=== PATIENT | male | born 1950 | race African-American/Black ===

== ENCOUNTER 2019-10-25 10:10 | Inpatient (IN) | payer BC ==
[~2019-10-25] VITALS: Ht 177.8 cm; Wt 97.5 kg
[2019-10-25] MEDS ORDERED: ASPIRIN 81 MG CHEW TAB PO ONE (10:45)
--- NOTE | 2019-10-25 11:47 | Diagnostic Imaging Report ---
EXAMINATION: CHEST SINGLE (PORTABLE) INDICATION: Shortness of breath COMPARISON: None FINDINGS: LINES/TUBES:EKG leads overlie the chest. LUNGS:The lungs are well-inflated. No focal consolidation or pulmonary edema. PLEURA:No pleural effusion or pneumothorax. MEDIASTINUM:The cardiomediastinal silhouette appears normal in size and shape. BONES/SOFT TISSUES:No acute osseous injury. ABDOMEN:No free air under the diaphragm. IMPRESSION: No focal pneumonia or pulmonary edema. Signed by: Renée Mac MD on 10/25/2019 11:43 AM
[2019-10-25 11:50] LABS: BASOPHILS % 0.3 % (0.0-1.0); EOSINOPHILS # (AUTO) 0.4 (0.0-0.4); EOSINOPHILS % 4.4 % (0.0-6.0); HEMATOCRIT 43.2 % (38.2-49.6); HEMOGLOBIN 14.8 g/dL (14.0-18.0); LYMPHOCYTES # (AUTO) 1.8 (1.0-3.2); LYMPHOCYTES % 23.2 % (18.0-39.1); MEAN CORPUSCULAR HEMOGLOBIN 33.6 pg (28-32); MEAN CORPUSCULAR HGB CONC 34.3 g/dL (31-35); MEAN CORPUSCULAR VOLUME 98.2 fL (81-99); MONOCYTES # (AUTO) 0.7 (0.2-0.8); MONOCYTES % 9.1 % (4.4-11.3); NEUTROPHILS % 62.6 % (38.7-80.0); PLATELET COUNT 217 x10e3/uL (140-360); RED CELL DISTRIBUTION WIDTH 11.6 % (11.7-14.4)
[2019-10-25 12:07] LABS: ALANINE AMINOTRANSFERASE 23 IU/L (0-55); ALBUMIN 3.7 g/dL (3.5-5.0); ALBUMIN/GLOBULIN RATIO 1.1 (0.8-2.0); ALKALINE PHOSPHATASE 86 IU/L (40-150); ANION GAP 15.9 mmol/L (8-16); BLOOD UREA NITROGEN 8 mg/dL (7-26); BUN/CREATININE RATIO 9 (6-25); CALCIUM 9.1 mg/dL (8.4-10.2); CARBON DIOXIDE 23 mmol/L (22-29); CHLORIDE 102 mmol/L (98-107); CREATINE KINASE 164 IU/L (30-200); CREATININE, SERUM 0.92 mg/dL (0.72-1.25); EST GLOMERULAR FILTRATION RATE > 60 ML/MIN (60-); GLUCOSE 95 mg/dL (74-118); POTASSIUM 3.9 mmol/L (3.5-5.1); SODIUM 137 mmol/L (136-145)
[2019-10-25 12:44] LABS: INR 0.91; PROTHROMBIN TIME 12.7 seconds (11.9-14.5)
[2019-10-25 12:45] LABS: PARTIAL THROMBOPLASTIN TIME 31.5 seconds (23.8-35.5)
--- NOTE | 2019-10-25 13:06 | NUR ---
VENOUS DOPPLER HERE
--- OUTSIDE RECORDS SUMMARY | 2019-10-25 15:00 | XMS REPORT ---
Author Author [facility] Address Unknown Phone Unavailable Care Team Providers Care Government Affairs Director Name Role Phone Samuel [place] Unavailable Unavailable Problems This patient has no known problems. Allergies, Adverse Reactions, Alerts This patient has no known allergies or adverse reactions. Medications This patient has no known medications. 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 LUNGS:The lungs are well-inflated. No focal consolidation or pulmonary edema. PLEURA:No pleural effusion or pneumothorax. MEDIASTINUM:The cardiomediastinal silhouette appears normal in size and shape. BONES/SOFT TISSUES:No acute osseous injury. ABDOMEN:No free air under the diaphragm. IMPRESSION: No focal pneumonia or pulmonary edema. Signed by: Leonid Zacarias MD on 10/25/2019 11:43 AM Dictated By: LEONID ZACARIAS MD 1143 Transcribed By: DOUGLAS on 10/25/19 1143 COPY TO: AKILAH NGUYEN NP
[2019-10-25] MEDS ORDERED: FUROSEMIDE INJ 10 MG/ML 4 ML VIAL IV SCH ×2 (16:00→21:00)
[2019-10-25] MEDS ORDERED: ACETAMINOPHEN 325 MG TAB PO PRN (16:15)
[2019-10-25] MEDS ORDERED: METOPROLOL TARTRATE INJ 1 MG/ML VIAL IV PRN (16:15)
[2019-10-25] MEDS ORDERED: TRAMADOL HCL 50 MG TAB PO PRN (16:15)
[2019-10-25] MEDS ORDERED: ONDANSETRON HCL INJ 2MG/ML 2ML 2 MG/ML VIAL IV PRN (16:15)
[2019-10-25 16:38] VITALS: BP 187/90
[2019-10-25 16:55] VITALS: BP 187/90
[2019-10-25] MEDS: FAMOTIDINE 20 MG TAB PO SCH (16:58)
--- NOTE | 2019-10-25 20:08 | NUR ---
Spoke to Dr. Giselle Allred, extension work director for Dr. Lidia Shea, will see patient.
[2019-10-25 20:44] LABS: CREATINE KINASE 148 IU/L (30-200)
[2019-10-25 20:45] VITALS: BP 137/79
[2019-10-25] MEDS: POTASSIUM CHLORIDE 20 MEQ TAB CR PO SCH (20:59)
[2019-10-25 21:00] VITALS: BP 137/79
--- NOTE | 2019-10-25 23:39 | NUR ---
Telemetry called, patient had 11 beats of VTAC, VS checked BP 107/54, HR 98, 02 Sat 100% on room air, patient is asymptomatic, no complaints of chest pain,not short of breath, spoke to Dr. Allred, no new order at this time, will continue to closely monitor patient
[2019-10-26] VITALS (9 sets, daily range): BP systolic 114–148; BP diastolic 64–84
[2019-10-26 04:18] LABS: BASOPHILS % 0.2 % (0.0-1.0); EOSINOPHILS # (AUTO) 0.2 (0.0-0.4); EOSINOPHILS % 2.4 % (0.0-6.0); HEMATOCRIT 43.5 % (38.2-49.6); HEMOGLOBIN 14.8 g/dL (14.0-18.0); LYMPHOCYTES # (AUTO) 1.8 (1.0-3.2); LYMPHOCYTES % 19.9 % (18.0-39.1); MEAN CORPUSCULAR HEMOGLOBIN 33.3 pg (28-32); MEAN CORPUSCULAR VOLUME 97.8 fL (81-99); MONOCYTES # (AUTO) 0.7 (0.2-0.8); NEUTROPHILS # (AUTO) 6.4 (2.1-6.9); NEUTROPHILS % 69.2 % (38.7-80.0); PLATELET COUNT 215 x10e3/uL (140-360); RED BLOOD COUNT 4.45 x10e6/uL (4.3-5.7); RED CELL DISTRIBUTION WIDTH 11.7 % (11.7-14.4)
[2019-10-26 04:34] LABS: ALANINE AMINOTRANSFERASE 19 IU/L (0-55); ALBUMIN 3.3 g/dL (3.5-5.0); ALBUMIN/GLOBULIN RATIO 1.1 (0.8-2.0); ALKALINE PHOSPHATASE 82 IU/L (40-150); ANION GAP 14.3 mmol/L (8-16); BLOOD UREA NITROGEN 13 mg/dL (7-26); BUN/CREATININE RATIO 13 (6-25); CALCIUM 9.1 mg/dL (8.4-10.2); CARBON DIOXIDE 22 mmol/L (22-29); CHLORIDE 105 mmol/L (98-107); CHOL/HDL RATIO 3.3 (3.9-4.7); CHOLESTEROL 126 MD/DL (0-199); CREATININE, SERUM 1.04 mg/dL (0.72-1.25); EST GLOMERULAR FILTRATION RATE > 60 ML/MIN (60-); GLUCOSE 101 mg/dL (74-118); HDL CHOLESTEROL 38 MG/DL (40-60); LDL CHOLESTEROL 74 MG/DL (60-130); MAGNESIUM 1.9 MG/DL (1.3-2.1); POTASSIUM 4.3 mmol/L (3.5-5.1); SODIUM 137 mmol/L (136-145); TRIGLYCERIDES 72 MG/DL (0-149)
[2019-10-26 04:35] LABS: CREATINE KINASE 133 IU/L (30-200)
[2019-10-26 04:56] LABS: THYROID STIMULATING HORMONE 1.685 uIU/mL (0.350-4.940)
--- NOTE | 2019-10-26 07:19 | NUR ---
Patient is resting in bed, not complaints at this time, will continue to monitor
[2019-10-26] MEDS: POTASSIUM CHLORIDE 20 MEQ TAB CR PO SCH ×2 (08:21→21:55)
[2019-10-26] MEDS: FAMOTIDINE 20 MG TAB PO SCH ×2 (08:21→17:35)
[2019-10-26] MEDS ORDERED: HYDRALAZINE HCL 20 MG/ML VIAL IV PRN (09:30)
--- NOTE | 2019-10-26 11:37 | NUR ---
Rounds performed, patient on IV lasix, RA, ST
[2019-10-26 13:01] LABS: CREATINE KINASE 138 IU/L (30-200)
[2019-10-26] MEDS: ENOXAPARIN 30 MG/0.3 ML SYR SC SCH (17:35)
--- NOTE | 2019-10-26 19:11 | NUR ---
WALKING ROUNDS PERFORMED, RECEIVED PT LAYING SEMI FOWLERS IN BED, AAOX3, RR EVEN AND NON-LABORED, ON ROOM AIR. NO S/SX OF DISTRESS NOTED. LEFT PT LAYING SEMI FOWLERS IN BED, BED IN LOW LOCKED POSITION, SIDE RAILS UPX2, CALL LIGHT AND PHONE WITHIN REACH.
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
[2019-10-26] MEDS: FUROSEMIDE INJ 10 MG/ML 4 ML VIAL IV SCH (21:55)
[2019-10-27] VITALS (8 sets, daily range): BP systolic 103–146; BP diastolic 51–79
[2019-10-27 03:41] LABS: BASOPHILS % 0.2 % (0.0-1.0); EOSINOPHILS # (AUTO) 0.3 (0.0-0.4); EOSINOPHILS % 3.3 % (0.0-6.0); HEMATOCRIT 42.1 % (38.2-49.6); HEMOGLOBIN 14.3 g/dL (14.0-18.0); LYMPHOCYTES # (AUTO) 2.1 (1.0-3.2); LYMPHOCYTES % 25.1 % (18.0-39.1); MEAN CORPUSCULAR HEMOGLOBIN 33.3 pg (28-32); MEAN CORPUSCULAR VOLUME 97.9 fL (81-99); MONOCYTES # (AUTO) 0.7 (0.2-0.8); MONOCYTES % 8.8 % (4.4-11.3); NEUTROPHILS # (AUTO) 5.2 (2.1-6.9); NEUTROPHILS % 62.4 % (38.7-80.0); PLATELET COUNT 216 x10e3/uL (140-360); RED CELL DISTRIBUTION WIDTH 11.6 % (11.7-14.4)
[2019-10-27 03:49] LABS: ANION GAP 14.9 mmol/L (8-16); BLOOD UREA NITROGEN 11 mg/dL (7-26); BUN/CREATININE RATIO 11 (6-25); CALCIUM 8.5 mg/dL (8.4-10.2); CARBON DIOXIDE 23 mmol/L (22-29); CHLORIDE 104 mmol/L (98-107); CREATININE, SERUM 1.03 mg/dL (0.72-1.25); EST GLOMERULAR FILTRATION RATE > 60 ML/MIN (60-); GLUCOSE 123 mg/dL (74-118); MAGNESIUM 1.9 MG/DL (1.3-2.1); POTASSIUM 3.9 mmol/L (3.5-5.1); SODIUM 138 mmol/L (136-145)
[2019-10-27] MEDS: FUROSEMIDE INJ 10 MG/ML 4 ML VIAL IV SCH ×2 (08:02→21:34)
[2019-10-27] MEDS: FAMOTIDINE 20 MG TAB PO SCH ×2 (08:02→17:11)
[2019-10-27] MEDS: POTASSIUM CHLORIDE 20 MEQ TAB CR PO SCH ×2 (08:02→21:34)
[2019-10-27] MEDS: ASPIRIN 81 MG CHEW TAB PO SCH (08:02)
--- NOTE | 2019-10-27 14:45 | NUR ---
Visit made by the Spiritual Care Department Pastoral Visitor, Jessica Shaver. Pt sleeping soundly and no family present. Pastoral Visitor left a card describing availability of assistant federal public defender and instructions on how to contact a assistant federal public defender. MORIS CARSON [employer] Spiritual Care Department O: [phone] Pager: [phone] ([phone] number calling from)
--- NOTE | 2019-10-27 16:31 | Progress Note ---
DATE: 10/27/2019 Cardiology Progress Note SUBJECTIVE: The patient denies chest pain or shortness of breath. OBJECTIVE: VITAL SIGNS: Temperature 97.7 degrees, pulse 92, respiratory rate 20, blood pressure 139/79, oxygen saturation 98% on room air. GENERAL: Awake, alert, in no acute distress. LUNGS: Clear to auscultation bilaterally. No wheezes or crackles. CARDIOVASCULAR: Normal rate, regular rhythm. No murmur. Normal S1, S2. ABDOMEN: Soft, nontender. EXTREMITIES: Dense pitting edema bilaterally. CARDIAC MEDICATIONS: Aspirin 81 mg p.o. daily, Lasix 40 mg IV q.12 hours. LABORATORY DATA: WBC 8.38, hemoglobin 14.3, hematocrit 42.1, platelets 216. Sodium 138, potassium 3.9, chloride 104, CO2 of 23, BUN 11, creatinine 1.03. TELEMETRY: Sinus tachycardia. IMPRESSION: 1. Lower extremity edema. 2. Suspect acute diastolic heart failure. 3. Nonsustained ventricular tachycardia. 4. Atypical chest pain. RECOMMENDATIONS: Bilateral lower extremity venous Doppler was without evidence of venous thrombosis. Echocardiogram was technically difficult, but ejection fraction appears to be preserved with diastolic dysfunction. Continue IV diuretics. Monitor patient on telemetry. Replete electrolytes to keep potassium above 4 and magnesium above 2. There has been no evidence of myocardial infarction on serial cardiac biomarkers. Recommend outpatient ischemic evaluation with nuclear stress test. Blood pressure is acceptable. Continue current cardiac medications. Thank you for this consult. We will continue to follow. Giselle Allred MD ABS/MODL /[id number]
[2019-10-27] MEDS: ENOXAPARIN 30 MG/0.3 ML SYR SC SCH (17:11)
--- NOTE | 2019-10-27 19:00 | NUR ---
RECEIVED PATIENT IN BEDSIDE SHIFT REPORT. PATIENT RESTING IN BED AT THIS TIME. APPLIED SCDS, PAIN IN LEGS REPORTED UPON MOVEMENT AND TOUCHING. PITTING EDEMA +2, SKIN TIGHT. NO OTHER PAIN REPORTED. NO S&S OF DISTRESS NOTED. BED LOCKED IN LOWEST POSITION, SIDE RAILS UPX2, CALL LIGHT IN REACH.
[2019-10-28] VITALS (8 sets, daily range): BP systolic 126–163; BP diastolic 63–77
[2019-10-28 03:04] LABS: BASOPHILS % 0.4 % (0.0-1.0); EOSINOPHILS # (AUTO) 0.3 (0.0-0.4); EOSINOPHILS % 4.2 % (0.0-6.0); HEMATOCRIT 43.4 % (38.2-49.6); LYMPHOCYTES # (AUTO) 2.1 (1.0-3.2); LYMPHOCYTES % 26.5 % (18.0-39.1); MEAN CORPUSCULAR HEMOGLOBIN 33.4 pg (28-32); MEAN CORPUSCULAR HGB CONC 34.6 g/dL (31-35); MEAN CORPUSCULAR VOLUME 96.7 fL (81-99); MONOCYTES # (AUTO) 0.7 (0.2-0.8); MONOCYTES % 8.4 % (4.4-11.3); NEUTROPHILS # (AUTO) 4.9 (2.1-6.9); NEUTROPHILS % 60.4 % (38.7-80.0); PLATELET COUNT 209 x10e3/uL (140-360); RED BLOOD COUNT 4.49 x10e6/uL (4.3-5.7); RED CELL DISTRIBUTION WIDTH 11.5 % (11.7-14.4)
[2019-10-28 03:19] LABS: ANION GAP 15.1 mmol/L (8-16); BLOOD UREA NITROGEN 8 mg/dL (7-26); BUN/CREATININE RATIO 8 (6-25); CALCIUM 8.7 mg/dL (8.4-10.2); CARBON DIOXIDE 23 mmol/L (22-29); CHLORIDE 104 mmol/L (98-107); EST GLOMERULAR FILTRATION RATE > 60 ML/MIN (60-); GLUCOSE 99 mg/dL (74-118); POTASSIUM 4.1 mmol/L (3.5-5.1); SODIUM 138 mmol/L (136-145)
[2019-10-28] MEDS ORDERED: ONDANSETRON HCL 4 MG ORAL DISINTEGRATING TAB PO PRN (07:00)
--- NOTE | 2019-10-28 07:00 | NUR ---
Received patient sitting on the bed with eyes open. Respiration even and unlabored without SOB. Call light in reach.
[2019-10-28] MEDS: ASPIRIN 81 MG CHEW TAB PO SCH (08:10)
[2019-10-28] MEDS: FUROSEMIDE INJ 10 MG/ML 4 ML VIAL IV SCH ×2 (08:10→20:48)
[2019-10-28] MEDS: FAMOTIDINE 20 MG TAB PO SCH ×2 (08:10→16:15)
[2019-10-28] MEDS: POTASSIUM CHLORIDE 20 MEQ TAB CR PO SCH ×2 (08:11→20:48)
--- NOTE | 2019-10-28 15:11 | NUR ---
WOUND CARE CONSULT 69 YO MALE HX BILAT LE EDEMA , CHEST PAIN ,DYSPNEA CORNELIO 20 ON CONSERVATIVE PUP AND VISCO MATTRESS SKIN ASSESSMENT COMPLETE PATIENT HAS NO OPEN AREAS TO SKIN SURFACE HE HAS BILATERAL 1+ EDEMA TO LOWER EXTREMITIES PATIENT TEACHING DONE FOR LOWER EXTREMITY SKIN CARE AND EDEMA CONTROL RECOMMENDATIONS: PATIENT COULD BENEFIT FROM COMPRESSION THERAPY AND STOCKING USAGE TO MINIMIZE AND CONTROL LOWER EXTREMITY EDEMA . I WILL F/U WITH PATIENT 7:30 AM 2018 FOR TUBIGRIP APPLICATION AND TEACHING Addendum: 10/28/19 at 1520 by Antwon Torres RN Amended: Links added.
[2019-10-28] MEDS: ENOXAPARIN 30 MG/0.3 ML SYR SC SCH (16:15)
--- NOTE | 2019-10-28 19:00 | NUR ---
RECEIVED PATIENT IN REPORT. PATIENT RESTING IN BED. STATES MILD PAIN TO TOP OF FEET, BUT BETTER THAN BEFORE. SKIN TO CALVES AND FEET TIGHT, PITTING EDEMA +1. FLUID MOVEMENT NOTED TO FEET AND KNEES. NO OTHER PAIN REPORTED. NO S&S OF DISTRESS NOTED. BED LOCKED IN LOWEST POSITION, SIDE RAILS UPX2, CALL LIGHT IN REACH.
--- NOTE | 2019-10-28 19:00 | NUR ---
Report given to shift foreman. Respiration even and unlabored without SOB. Patient lying in bed with eyes open. Call light in reach.
[2019-10-29 00:41] VITALS: BP 101/57
[2019-10-29 04:00] VITALS: BP 125/53
[2019-10-29] MEDS ORDERED: POTASSIUM CHLO20 ME1 PO (05:10)
[2019-10-29] MEDS ORDERED: ASPIRIN CHEW81 MG PO (05:10)
[2019-10-29] MEDS ORDERED: FUROSEMIDE40 MG PO (05:10)
--- NOTE | 2019-10-29 07:47 | NUR ---
WOUND CARE CONSULT BILATERAL LE COMPRESSION FITTING AND TEACHING 69 YO MALE HX BILAT LE EDEMA , CHEST PAIN ,DYSPNEA CORNELIO 20 ON CONSERVATIVE PUP AND VISCO MATTRESS PATIENT TEACHING DONE FOR LOWER EXTREMITY SKIN CARE AND EDEMA CONTROL PATIENT INSTRUCTED TUBIGRIP COMPRESSION STOCKING FITTING AND USAGE PATIENT INSTRUCTED ON EXERCISE TECHNIQUES TO MINIMIZE AND CONTROL LOWER EXTREMITY EDEMA PATIENT ABLE TO REPEAT DAILY REGIMEN FOR FOOT CARE AND COMPRESSION USAGE AND WARNING SIGNS LIKE INCREASE PAIN AND AVOIDANCE OF WRINKLES IN COMPRESSION WEAR TO AVOID INJURY TO SKIN PATIENT GIVEN CONTACT NUMBER FOR ANY FUTURE CONCERNS OR QUESTIONS AFTER DISCHARGE Addendum: 10/29/19 at 0754 by Antwon Torers RN Amended: Links added.
[2019-10-29 08:09] VITALS: BP 142/91
--- NOTE | 2019-10-29 08:20 | NUR ---
PT DISCHARGE INSTRUCTIONS AND PRESCRIPTIONS GIVEN IV DC PRESSURE DRESSING APPLIED AND TAPED PT STOCKING ARE ON PER WOUND CARE ADMINISTRATION PT IS READY FOR DC AT THIS TIME
[2019-10-29 08:51] VITALS: BP 142/91
[2019-10-29] MEDS: FAMOTIDINE 20 MG TAB PO SCH (08:53)
[2019-10-29] MEDS: ASPIRIN 81 MG CHEW TAB PO SCH (08:53)
[2019-10-29] MEDS: POTASSIUM CHLORIDE 20 MEQ TAB CR PO SCH (08:53)
[2019-10-29] MEDS: FUROSEMIDE INJ 10 MG/ML 4 ML VIAL IV SCH (08:53)
--- NOTE | 2019-10-29 09:20 | NUR ---
PT OFF UNIT TO HOME AT THIS TIME
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
== END 2019-10-29 09:20 | disposition home or self-care (01) | DRG 292 ==
LOC: ER 10:10 → ERHOLD 13:58 → MED/SURG 16:36 → OBSVTOIN 10-27 08:06
PROVIDERS: ADMIT Internal Medicine; ATTEND Internal Medicine
DX: I11.0 Hypertensive heart disease with heart failure (principal); I47.2 Ventricular tachycardia; I50.33 Acute on chronic diastolic (congestive) heart failure; Z82.49 Family history of ischemic heart disease and other diseases of the circulatory system; E66.01 Morbid (severe) obesity due to excess calories; R07.89 Other chest pain; Z68.39 Body mass index [BMI] 39.0-39.9, adult; Z72.89 Other problems related to lifestyle
CPT/HCPCS: 36415; 71045; 80048; 80053; 80061; 82550; 82553; 83036; 83735; 83880; 84443; 84484; 85025; 85610; 85730; 87040; 93005; 93306; 93970; 99284; G0378; J0360; J1650; J1940

== ENCOUNTER → 2020-03-18 | Day surgery (SDC) | payer BC, OTHER ==
--- NOTE | 2020-03-13 11:21 | Diagnostic Imaging Report ---
X-ray chest PA and lateral History: Preop Findings: Unremarkable cardiomediastinal silhouette except for slight prominence of the descending thoracic aorta. No pleural effusion or pneumothorax. No focal lung disease. Degenerative changes of the thoracic spine. No significant abnormality in the upper abdomen. Impression: No acute cardiopulmonary disease on this exam. Signed by: Edd Wilson MD on 03/13/2020 11:18 AM
[2020-03-13 11:24] LABS: BASOPHILS % 0.2 % (0.0-1.0); EOSINOPHILS # (AUTO) 0.2 (0.0-0.4); EOSINOPHILS % 2.3 % (0.0-6.0); HEMATOCRIT 39.4 % (38.2-49.6); HEMOGLOBIN 13.4 g/dL (14.0-18.0); LYMPHOCYTES # (AUTO) 1.8 (1.0-3.2); MEAN CORPUSCULAR HEMOGLOBIN 33.4 pg (28-32); MEAN CORPUSCULAR VOLUME 98.3 fL (81-99); MONOCYTES # (AUTO) 0.8 (0.2-0.8); MONOCYTES % 7.3 % (4.4-11.3); NEUTROPHILS # (AUTO) 7.6 (2.1-6.9); NEUTROPHILS % 72.9 % (38.7-80.0); PLATELET COUNT 209 x10e3/uL (140-360); RED BLOOD COUNT 4.01 x10e6/uL (4.3-5.7); RED CELL DISTRIBUTION WIDTH 11.9 % (11.7-14.4)
[2020-03-13 11:39] LABS: ANION GAP 11.1 mmol/L (8-16); BLOOD UREA NITROGEN 10 mg/dL (7-26); BUN/CREATININE RATIO 9 (6-25); CARBON DIOXIDE 27 mmol/L (22-29); CHLORIDE 105 mmol/L (98-107); CREATININE, SERUM 1.07 mg/dL (0.72-1.25); EST GLOMERULAR FILTRATION RATE > 60 ML/MIN (60-); GLUCOSE 106 mg/dL (74-118); POTASSIUM 4.1 mmol/L (3.5-5.1); SODIUM 139 mmol/L (136-145)
[~2020-03-18] MED LIST: ASPIRIN CHEW81 MG PO; B&O 60MG R/S 60 MG SUPP PR ONE; BUPIVACAINE 0.25% 30ML SDV INJ ONE; CEFAZOLIN SOD 1 GM VIAL ONE; CEFAZOLIN SOD 1 GM/NS 50ML 100 ML IV ONE; DESFLURANE 240 ML BTL INH ONE; DEXAMETHASONE SOD PHOS INJ 4 MG/ML VIAL ONE; FENTANYL CITRATE/PF 100MCG/2 ML INJ ONE; FLOMAX0.4 MG PO; FUROSEMIDE40 MG PO; HYDRALAZINE HCL 20 MG/ML VIAL ONE; IOPAMIDOL 200 MG/ML 20 ML VIAL IT ONE; IOPAMIDOL 300MG/ML 50ML INFUS..BTL IV ONE; KETOROLAC TROMETHAMINE 30 MG/ML VIAL ONE; MEPERIDINE HCL INJ 25 MG/ML VIAL ONE; NEOSTIGMINE 1 MG/ML 10ML VIAL ONE; ONDANSETRON HCL INJ 2MG/ML 2ML 2 MG/ML VIAL ONE; POTASSIUM CHLO20 ME1 PO; PROPOFOL IV EMULSION 10 MG/ML 20 ML VIAL ONE
--- OUTSIDE RECORDS SUMMARY | 2020-03-18 09:29 | XMS REPORT ---
Author Author [facility] t Organization [facility] Address [address] [place] [address] Phone Unavailable Care Team Providers Care Pharmacist Helper Name Role Phone NO, PCP PCP Unavailable HAMPEL, FILI Attphys Unavailable Samuel BIRMINGHAM Attphys Unavailable Payers Payer Name Policy Type Policy Number Effective Date Expiration Date S [id number] Problems Condition Name Condition Details Condition Category Status Onset Date Resolution Date Last Treatment Date Treating Clinician Comments Source Edema of both lower extremities Bilateral lower extremity edema Pro blem Active [facility] Chest pain Chest pain Problem Active C [facility] Dyspnea Dyspnea Problem Active [facility] Allergies, Adverse Reactions, Alerts This patient has no known allergies or adverse reactions. Medications Ordered Medication Name Filled Medication Name Start Date Stop Da te Current Medication? Ordering Clinician Indication Dosage Frequency Signature (SIG) Comments Components Source Aspirin (Aspirin Chew) 81 Mg Chew Aspirin (Aspirin Chew) 81 Mg Chew 2019-10-29 00:00:00 Yes Martine Chapman Field Reporter 81 Daily [facility] Furosemide 40 Mg Tablet Furosemide 40 Mg Tablet 2019-10-29 00:00:00 Yes Martine Chapman Field Reporter 40 Daily [facility] Potassium Chloride 20 Meq Tab.er.prt Potassium Chloride 20 M eq Tab.er.prt 2019-10-29 00:00:00 Yes Martine Chapman Field Reporter 20 Daily [facility] Procedures This patient has no known procedures. Encounters Start Date/Time End Date/Time Encounter Type Admission Type [facility] Care Department Encounter ID Source 2019-10-27 08:06:00 2019-10-29 09:20:00 Discharged Inpatient 1 JONATHAN [facility] [id number] [facility] Results Test Description Test Time Test Comments Results Result Comments Source CHEST 2 VIEWS 2020-03-13 11:17:00 [place] [address] Patient Name: LIYA NOVAK MR #: [id number] : 1950 Age/Sex: 69/M Req #: [id number] Adm Physician: Ordered by: FILI NEWBERRY MD Report #: [id number] Location: OR Room/Bed: Procedure: [id number] DX/CHEST 2 VIEWS Exam Date: Exam Time: REPORT STATUS: Signed X-ray chest PA and lateral History: Preop Findings: Unremarkable cardiomediastinal silhouette except for slight prominence of the descending thoracic aorta. No pleural effusion or pneumothorax. No focal lung disease. Degenerative changes of the thoracic spine. No significant abnormality in the upper abdomen. Impression: No acute cardiopulmonary disease on this exam. Signed by: Edd Nettles MD on 03/13/2020 11:18 AM Dictated By: EDD NETTLES MD [id number] Transcribed By: DOUGLAS on 03/13/20 1118 COPY TO: FILI NEWBERRY MD Blood Culture 2019-10-28 14:04:00 Test Item Blood Culture (test code = 09730545) NO GROWTH AFTER 72 HOURS [facility] Iraks1829-51-63 03:29:00* Test Item Value Reference Range Interpretation Comments Sodium Level (test code = 2951-2) 138 136-145 [facility]assium Bpvru8144-80-35 03:29:00* Test Item Value Reference Range Interpretation Comments Potassium Level (test code = 2823-3) 4.1 3.5-5.1 [facility] HospitalChloride Ipqcj6051-06-86 03:29:00* Test Item Value Reference Range Interpretation Comments Chloride Level (test code = 2075-0) 104 98-107 [facility] HospitalCarbon Dioxide Mmhol7537-09-11 03:29:00* Test Item Value Reference Range Interpretation Comments Carbon Dioxide Level (test code = 2028-9) 23 - [facility] HospitalAnion Iah0958-12-09 03:29:00* Test Item Value Reference Range Interpretation Comments Anion Gap (test code = 54567-5) 15.1 8-16 [facility] HospitalBlood Urea Rvkmioqq7455-63-55 03:29:00* Test Item Value Reference Range Interpretation Comments Blood Urea Nitrogen (test code = 3094-0) 8 7-26 [facility] HospitalCreatinine2019-12-23 03:29:00* Test Item Value Reference Range Interpretation Comments Creatinine (test code = 2160-0) 1.00 0.72-1.25 [facility] HospitalBUN/Creatinine Sfbfj8129-50-90 03:29:00* Test Item Value Reference Range Interpretation Comments BUN/Creatinine Ratio (test code = 3097-3) 8 6-25 [facility] HospitalEstimat Glomerular Filtration Rate 2019-10-28 03:29:00* Test Item Value Reference Range Interpretation Comments Estimat Glomerular Filtration Rate (test code = 674598640) > 60 >60 Ranges were taken from the National Kidney Disease Education Program and the [facility] [employer] literature.Reference ranges:60 or greater: Ycizil56-72 ( for 3 consecutive months): Chronic kidney disease 15 or less: Kidney failureMayhill HospitalGlucose Wdozj2255-37-17 03:29:00* Test Item Value Reference Range Interpretation Comments Glucose Level (test code = GQC4136) 99 74-118 [facility] HospitalCalcium Crwhh8624-64-88 03:29:00* Test Item Value Reference Range Interpretation Comments Calcium Level (test code = 66258-6) 8.7 8.4-10.2 [facility] HospitalWhite Blood Jbckx0178-61-28 03:04:00* Test Item Value Reference Range Interpretation Comments White Blood Count (test code = 6690-2) 8.09 4.8-10.8 [facility] HospitalRed Blood Itpuc9420-88-46 03:04:00* Test Item Value Reference Range Interpretation Comments Red Blood Count (test code = 789-8) 4.49 4.3-5.7 [facility] HospitalHemoglobin2019-12-23 03:04:00* Test Item Value Reference Range Interpretation Comments Hemoglobin (test code = 62216-6) 15.0 14.0-18.0 [facility] HospitalHematocrit2019-12-23 03:04:00* Test Item Value Reference Range Interpretation Comments Hematocrit (test code = 4544-3) 43.4 38.2-49.6 [facility] HospitalMean Corpuscular Sitdtg3731-31-88 03:04:00* Test Item Value Reference Range Interpretation Comments Mean Corpuscular Volume (test code = 787-2) 96.7 81-99 [facility] HospitalMean Corpuscular Iiytysuiuj7513-91-91 03:04:00* Test Item Value Reference Range Interpretation Comments Mean Corpuscular Hemoglobin (test code = 785-6) 33.4 28-32 [facility] HospitalMean Corpuscular Hemoglobin Concent 2019-10-28 03:04:00* Test Item Value Reference Range Interpretation Comments Mean Corpuscular Hemoglobin Concent (test code = 786-4) 34.6 31-35 [facility] HospitalRed Cell Distribution Wtqyj6983-18-88 03:04:00* Test Item Value Reference Range Interpretation Comments Red Cell Distribution Width (test code = 61789-1) 11.5 11.7 -14.4 [facility] HospitalPlatelet Thbtv3384-10-40 03:04:00* Test Item Value Reference Range Interpretation Comments Platelet Count (test code = 777-3) 209 140-360 [facility] HospitalNeutrophils (%) (Auto)2019-10-28 03:04:00 * Test Item Value Reference Range Interpretation Comments Neutrophils (%) (Auto) (test code = 37270-6) 60.4 38.7-80.0 [facility] HospitalLymphocytes (%) (Auto)2019-10-28 03:04:00 * Test Item Value Reference Range Interpretation Comments Lymphocytes (%) (Auto) (test code = 736-9) 26.5 18.0-39.1 [facility] HospitalMonocytes (%) (Auto)2019-10-28 03:04:00* Test Item Value Reference Range Interpretation Comments Monocytes (%) (Auto) (test code = 5905-5) 8.4 4.4-11.3 [facility] HospitalEosinophils (%) (Auto)2019-10-28 03:04:00 * Test Item Value Reference Range Interpretation Comments Eosinophils (%) (Auto) (test code = 713-8) 4.2 0.0-6.0 [facility] HospitalBasophils (%) (Auto)2019-10-28 03:04:00* Test Item Value Reference Range Interpretation Comments Basophils (%) (Auto) (test code = 706-2) 0.4 0.0-1.0 [facility] HospitalIM GRANULOCYTES %2019-10-28 03:04:00* Test Item Value Reference Range Interpretation Comments IM GRANULOCYTES % (test code = IM GRANULOCYTES %) 0.1 0.0- 1.0 [facility] HospitalNeutrophils # (Auto)2019-10-28 03:04:00* Test Item Value Reference Range Interpretation Comments Neutrophils # (Auto) (test code = 751-8) 4.9 2.1-6.9 [facility] HospitalLymphocytes # (Auto)2019-10-28 03:04:00* Test Item Value Reference Range Interpretation Comments Lymphocytes # (Auto) (test code = 92549-6) 2.1 1.0-3.2 [facility] HospitalMonocytes # (Auto)2019-10-28 03:04:00* Test Item Value Reference Range Interpretation Comments Monocytes # (Auto) (test code = 742-7) 0.7 0.2-0.8 [facility] HospitalEosinophils # (Auto)2019-10-28 03:04:00* Test Item Value Reference Range Interpretation Comments Eosinophils # (Auto) (test code = 711-2) 0.3 0.0-0.4 [facility] HospitalBasophils # (Auto)2019-10-28 03:04:00* Test Item Value Reference Range Interpretation Comments Basophils # (Auto) (test code = 704-7) 0.0 0.0-0.1 [facility] HospitalAbsolute Immature Granulocyte (auto 2019-10-28 03:04:00* Test Item Value Reference Range Interpretation Comments Absolute Immature Granulocyte (auto (kathryn t code = Absolute Immature Granulocyte (auto) 0.01 0-0.1 [facility] HospitalMagnesium Gngkf1263-73-44 04:00:00* Test Item Value Reference Range Interpretation Comments Magnesium Level (test code = 26793-4) 1.9 1.3-2.1 [facility] HospitalCreatine Kinase RQ6145-14-06 13:08:00* Test Item Value Reference Range Interpretation Comments Creatine Kinase MB (test code = 78089-6) 1.30 0-5.0 [facility] HospitalTroponin V9010-03-87 13:08:00* Test Item Value Reference Range Interpretation Comments Troponin I (test code = FSO4112) < 0.001 0-0.300 [facility] HospitalCreatine Flgxnf2693-99-04 13:05:00* Test Item Value Reference Range Interpretation Comments Creatine Kinase (test code = 2157-6) 138 30-200 [facility] HospitalThyroid Stimulating Hormone (TSH) 2019-10-26 04:57:00* Test Item Value Reference Range Interpretation Comments Thyroid Stimulating Hormone (TSH) (test code = 25361-7) 1.685 0.350-4.940 [facility] HospitalHemoglobin A1c Iooednb6681-65-51 04:40:00 * Test Item Value Reference Range Interpretation Comments Hemoglobin A1c Percent (test code = Hemoglobin A1c Percent) 4.9 4.0-7.0 [facility] HospitalTotal Oubmsquzd6836-13-69 04:38:00* Test Item Value Reference Range Interpretation Comments Total Bilirubin (test code = 1975-2) 0.5 0.2-1.2 [facility] HospitalAspartate Amino Transf (AST/SGOT) 2019-10-26 04:38:00* Test Item Value Reference Range Interpretation Comments Aspartate Amino Transf (AST/SGOT) (test code = Aspartate Amino Transf (AST/SGOT)) 21 5-34 [facility] HospitalAlanine Aminotransferase (ALT/SGPT) 2019-10-26 04:38:00* Test Item Value Reference Range Interpretation Comments Alanine Aminotransferase (ALT/SGPT) (test code = 1742-6) 19 0-55 [facility] HospitalTotal Gitdlrm8170-75-40 04:38:00* Test Item Value Reference Range Interpretation Comments Total Protein (test code = 2885-2) 6.3 6.5-8.1 [facility] HospitalAlbumin2019-12-21 04:38:00* Test Item Value Reference Range Interpretation Comments Albumin (test code = 1751-7) 3.3 3.5-5.0 [facility] HospitalGlobulin2019-12-21 04:38:00* Test Item Value Reference Range Interpretation Comments Globulin (test code = 34568-9) 3.0 2.3-3.5 [facility] HospitalAlbumin/Globulin Ivlqh6510-87-65 04:38:00 * Test Item Value Reference Range Interpretation Comments Albumin/Globulin Ratio (test code = 1759-0) 1.1 0.8-2.0 [facility] HospitalAlkaline Wynrxzjpdfo4874-67-01 04:38:00* Test Item Value Reference Range Interpretation Comments Alkaline Phosphatase (test code = 6768-6) 82 40-150 [facility] HospitalTriglycerides Cfszh3885-07-35 04:38:00* Test Item Value Reference Range Interpretation Comments Triglycerides Level (test code = 2571-8) 72 0-149 [facility] HospitalCholesterol Agjqm6095-92-20 04:38:00* Test Item Value Reference Range Interpretation Comments Cholesterol Level (test code = 2093-3) 126 0-199 Less than 200 mg/dL Low Dhrl218 - 239 mg/dL Borderline Alkh137 m g/dl and greater High Risk [facility] HospitalLDL Lrqjqadkimi7477-27-21 04:38:00* Test Item Value Reference Range Interpretation Comments LDL Cholesterol (test code = 2089-1) 74 60-130 [facility] HospitalHDL Riyvnwutbto9353-20-04 04:38:00* Test Item Value Reference Range Interpretation Comments HDL Cholesterol (test code = 2085-9) 38 40-60 [facility] HospitalCholesterol/HDL Tipyo4404-03-29 04:38:00 * Test Item Value Reference Range Interpretation Comments Cholesterol/HDL Ratio (test code = 9830-1) 3.3 3.9-4.7 [facility] HospitalActivated Partial Thromboplast Time 2019-10-25 12:49:00* Test Item Value Reference Range Interpretation Comments Activated Partial Thromboplast Time (test code = 43419-2) 31.5 23.8-35.5 [facility] HospitalProthrombin Bhpz5122-88-63 12:45:00* Test Item Value Reference Range Interpretation Comments Prothrombin Time (test code = 5902-2) 12.7 11.9-14.5 [facility] HospitalProthromb Time International Ratio 2019-10-25 12:45:00* Test Item Value Reference Range Interpretation Comments Prothromb Time International Ratio (test code = 6301-6) 0.91 Oral Anticoagulant Therapy INR Values:1. Low Intensity Therapy 1.5 - 2.02 . Moderate Intensity Therapy 2.0 - 3.03. High Intensity Therapy(1) 2.5 - 3. 54. High Intensity Therapy(2) 3.0 - 4.05. Panic Value INR > 5.0 [facility] HospitalB-Type Natriuretic Lienogh3534-29-17 12:30:00* Test Item Value Reference Range Interpretation Comments B-Type Natriuretic Peptide (test code = 60007-1) 49.2 0-100 [facility] HospitalCHEST SINGLE (PORTABLE)2019-10-25 11:43:00 [facility] [address] [place] [address] Patient Name: LIYA NOVAK MR #: [id number] : 1950 Age/Sex: 69/M Req #: [id number] Adm Physician: Ordered by: AKILAH NGUYEN FRONT MAKER Report #: [id number] Location: ER Room/Bed: Procedure: 1220-0 038 DX/CHEST SINGLE (PORTABLE) Exam Date: 10/25/19 E xam Time: 1122 REPORT STATUS: Cornelia d EXAMINATION: CHEST SINGLE (PORTABLE) INDICATION: Shortness of pablo ath COMPARISON: None FINDINGS: LINES/TUBES:EKG leads overlie the chest. LUNGS:The lungs are well-inflated. No focal consolidation or pu lmonary edema. PLEURA:No pleural effusion or pneumothorax. MEDIASTINUM :The cardiomediastinal silhouette appears normal in size and shape. BONES/S OFT TISSUES:No acute osseous injury. ABDOMEN:No free air under the diaphrag m. IMPRESSION: No focal pneumonia or pulmonary edema. Signed by: Leonid Zacarias MD on 10/25/2019 11:43 AM Dictated By: LEONID ZACARIAS MD Electr onically Signed By: LEONID ZACARIAS MD on 10/25/19 1143 Transcribed By: DOUGLAS on 12/26/18 1143 COPY TO: AKILAH NGUYEN NP
[2020-03-18 15:30] VITALS: BP 105/65
--- NOTE | 2020-03-20 03:32 | Operative Report ---
DATE OF PROCEDURE: 03/18/2020 SURGEON: Juan A Blanc MD PREOPERATIVE DIAGNOSES: 1. Phimosis. 2. Urinary tract infection. POSTOPERATIVE DIAGNOSES: 1. Phimosis. 2. Urinary tract infection. 3. 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 OPERATIONS PERFORMED: 1. Circumcision. 2. Dorsal slit (additional procedure required for retracting the foreskin). 3. Regional nerve block (separate procedure performed for postoperative pain control and not required for the actual performance of the surgery, done under general anesthesia). 4. Cystourethroscopy with calibration and dilation of urethral stricture disease (separate procedure performed for the strictures). 5. Cystourethroscopy with bilateral ureteral catheterization and retrograde ureteropyelography (separate procedure performed for the urinary tract infections). 6. Interpretation of retrograde ureteropyelography, no radiologist present. 7. Supervision of fluoroscopy, no radiologist present. 8. Interpretation of cystography, no radiologist present. ANESTHESIA: General. COMPLICATIONS: None. CLINICAL SUMMARY: Kevin Shaffer is a 69-year-old man with severe phimosis. He has had urinary tract infection. He is brought for the above procedures. He is aware of the risks of bleeding, infection, injury to adjacent structures, need for additional procedures and elected to proceed. He understands his penis will always be uncovered and that can affect his sensation for some time. This procedure is not elective. The patient has severe phimosis that has caused infection. He has poor urination and he needs this addressed before he has more complications. OPERATIVE PROCEDURE IN DETAIL: Informed consent was verified and Kevin Shaffer was properly identified, taken to the operating room, placed on the operating table in supine position. Anesthesia was uneventfully begun. The patient's genitalia were then shaved, prepared, and draped in usual sterile fashion. Marcaine without epinephrine was utilized to infiltrate subcutaneously, circumferentially at the base of the penis as well as in the region of the dorsal penile nerves. This is done for postoperative pain control and not required for the actual performance of surgery, which was done under general anesthesia. A circumferential incision was then made overlying the cortez of the glans penis. The foreskin was fully retracted and secondary incision made approximately 5 mm away from the cortez of the glans penis along the inner preputial skin. A sleeve circumcision was then performed, the foreskin was removed. Pinpoint electrocautery was utilized to achieve hemostasis. The patient's incision was then approximated with 4-0 chromic suture in running fashion with excellent cosmetic result. The patient was then carefully gently repositioned in dorsal lithotomy position. All pressure points well padded. His genitalia were redraped. The 21-Bhutanese cystoscope sheath with the visual obturator in place was introduced in the patient's urethral meatus, but there was obstruction at the level of fossa navicularis. We calibrated this to approximately 16-Bhutanese in size and dilated with sounds to 26-Bhutanese in size. This allowed us to bring cystoscope sheath down the normal shaft urethra until we reached the bulbar region where there was a fairly tight urethral stricture. We passed a guidewire through the stricture and we gently dilated across the stricture with the cystoscope sheath. We went through the prostate bed, which was significant for bilobar prostatic hypertrophy with kissing lateral lobes and into the patient's bladder, which exhibited grade 3 trabeculations with early cellule formation. No suspicious lesions were identified. There were no tumors. No stones. An 8-Bhutanese catheter was used to cannulate each ureter and retrograde ureteral pyelograms were performed. Interpretation of retrograde ureteropyelography contrast was instilled in retrograde fashion bilaterally. No tumors, no stones, and no diverticula. Unobstructed drainage was observed bilaterally fluoroscopically. There was some fullness of both ureters to the level of the patient's bladder. The right side exhibited some more fullness compared to the left side and there was a less than ideal opacification of the lower pole collecting system as it seemed to be diluted in urine. Drainage film still shows better opacification of the lower pole. The cystoscope was withdrawn. We utilized Yovany sounds to dilate this bulbar urethral stricture to 26-Bhutanese. We then passed a 24-Bhutanese Castro catheter with a 10 mL balloon and a Councill-tip catheter over the guidewire into the patient's bladder, filled the balloon with water. We then injected contrast performing by cystogram. Interpretation of cystogram contrast was injected in retrograde fashion via the Castro catheter. There was some extravasation noted in the region of the right distal ureter. This is believed to be caused by the injection attempts as we tried to pass by the right-sided system, and due to the fact that it was hydronephrotic and diluted the contrast, over injection seemed to have caused some extravasation. Nevertheless, unobstructed drainage was observed fluoroscopically from the ureter. There were trabeculations in the bladder and Castro balloon was in good position within the bladder lumen. A belladonna and opium suppository were placed revealing 45 g prostate that is smooth, nonfluctuant without any nodules. The patient was then uneventfully reversed from anesthesia and taken to recovery room in stable condition. There were no complications to the procedure. He tolerated the procedure well. Explicit postop instructions were given. We will plan to follow the patient up in approximately 2 weeks to remove his Castro catheter in the office. Ongoing urological followup is a must due to his urethral stricture disease that has a high potential for recurrence. Juan A Blanc MD [place]/MODL /[id number]
== END | disposition home or self-care (01) ==
LOC: OR 09:26
PROVIDERS: ATTEND Urology
DX: N47.1 Phimosis (principal); N39.0 Urinary tract infection, site not specified; N35.912 Unspecified bulbous urethral stricture, male; N40.1 Benign prostatic hyperplasia with lower urinary tract symptoms; R39.14 Feeling of incomplete bladder emptying; R35.1 Nocturia; N32.89 Other specified disorders of bladder; N47.6 Balanoposthitis; N52.9 Male erectile dysfunction, unspecified; N50.0 Atrophy of testis; K42.9 Umbilical hernia without obstruction or gangrene; E66.01 Morbid (severe) obesity due to excess calories; I11.0 Hypertensive heart disease with heart failure; I50.9 Heart failure, unspecified; J45.909 Unspecified asthma, uncomplicated; F32.9 Major depressive disorder, single episode, unspecified; Z01.812 Encounter for preprocedural laboratory examination; Z01.818 Encounter for other preprocedural examination; Z11.59 Encounter for screening for other viral diseases; Z79.82 Long term (current) use of aspirin; Z68.35 Body mass index [BMI] 35.0-35.9, adult; Z95.0 Presence of cardiac pacemaker
CPT/HCPCS: 36415; 52281; 54161; 71046; 74420; 80048; 85025; 87635; 88304; J0360; J0690 ×2; J1100; J1885; J2175; J2405; J2704; J2710; J3010; Q9967

== ENCOUNTER 2020-03-26 08:27 | Inpatient (IN) | payer BC, MEDICARE, OTHER ==
[~2020-03-26] VITALS: Ht 177.8 cm; Wt 97.5 kg
[~2020-03-26 08:27] MED LIST changes: -B&O 60MG R/S 60 MG SUPP PR ONE; -BUPIVACAINE 0.25% 30ML SDV INJ ONE; -CEFAZOLIN SOD 1 GM VIAL ONE; -CEFAZOLIN SOD 1 GM/NS 50ML 100 ML IV ONE; -DESFLURANE 240 ML BTL INH ONE; -DEXAMETHASONE SOD PHOS INJ 4 MG/ML VIAL ONE; -FENTANYL CITRATE/PF 100MCG/2 ML INJ ONE; -HYDRALAZINE HCL 20 MG/ML VIAL ONE; -IOPAMIDOL 200 MG/ML 20 ML VIAL IT ONE; -IOPAMIDOL 300MG/ML 50ML INFUS..BTL IV ONE; -KETOROLAC TROMETHAMINE 30 MG/ML VIAL ONE; -MEPERIDINE HCL INJ 25 MG/ML VIAL ONE; -NEOSTIGMINE 1 MG/ML 10ML VIAL ONE; -ONDANSETRON HCL INJ 2MG/ML 2ML 2 MG/ML VIAL ONE; -PROPOFOL IV EMULSION 10 MG/ML 20 ML VIAL ONE
[2020-03-26 09:11] LABS: BASOPHILS % 0.3 % (0.0-1.0); EOSINOPHILS # (AUTO) 0.3 (0.0-0.4); EOSINOPHILS % 2.6 % (0.0-6.0); HEMATOCRIT 34.8 % (38.2-49.6); HEMOGLOBIN 11.9 g/dL (14.0-18.0); LYMPHOCYTES # (AUTO) 2.3 (1.0-3.2); LYMPHOCYTES % 20.6 % (18.0-39.1); MEAN CORPUSCULAR HEMOGLOBIN 33.1 pg (28-32); MEAN CORPUSCULAR HGB CONC 34.2 g/dL (31-35); MEAN CORPUSCULAR VOLUME 96.7 fL (81-99); MONOCYTES # (AUTO) 0.9 (0.2-0.8); MONOCYTES % 8.5 % (4.4-11.3); NEUTROPHILS # (AUTO) 7.4 (2.1-6.9); NEUTROPHILS % 67.6 % (38.7-80.0); PLATELET COUNT 208 x10e3/uL (140-360); RED CELL DISTRIBUTION WIDTH 11.3 % (11.7-14.4)
[2020-03-26 09:22] LABS: CLARITY,URINE CLEAR (CLEAR); COLOR,URINE YELLOW (YELLOW)
[2020-03-26 09:23] LABS: BILIRUBIN,URINE NEGATIVE (NEGATIVE); KETONES,URINE NEGATIVE (NEGATIVE); LEUKOCYTE ESTERASE ,URINE SMALL (NEGATIVE); NITRITE,URINE NEGATIVE (NEGATIVE); PROTEIN,URINE DIPSTICK >=300 (NEGATIVE); URINE UROBILINOGEN 0.2 mg/dL (0.2 - 1)
[2020-03-26 09:34] LABS: ALANINE AMINOTRANSFERASE 22 IU/L (0-55); ALBUMIN 3.5 g/dL (3.5-5.0); ALBUMIN/GLOBULIN RATIO 0.9 (0.8-2.0); ALKALINE PHOSPHATASE 79 IU/L (40-150); ANION GAP 14.5 mmol/L (8-16); BLOOD UREA NITROGEN 14 mg/dL (7-26); BUN/CREATININE RATIO 12 (6-25); CALCIUM 9.3 mg/dL (8.4-10.2); CARBON DIOXIDE 25 mmol/L (22-29); CHLORIDE 100 mmol/L (98-107); CREATINE KINASE 167 IU/L (30-200); EST GLOMERULAR FILTRATION RATE > 60 ML/MIN (60-); GLUCOSE 108 mg/dL (74-118); POTASSIUM 3.5 mmol/L (3.5-5.1); SODIUM 136 mmol/L (136-145)
--- NOTE | 2020-03-26 10:04 | Diagnostic Imaging Report ---
X-ray chest AP portable Comparison: 03/13/2020 History: Chest pain Findings: Central airways are not well visualized. There is apparent cardiomegaly which could be because of the technique. There is no pleural effusion. There is no pneumothorax. There is prominence of the descending thoracic aorta. Lung rojas show no focal significant disease. Visualized skeleton and extrathoracic soft tissue structures are unremarkable for an acute abnormality. Impression: No acute cardiopulmonary disease. Signed by: Edd Wilson MD on 03/26/2020 10:01 AM
[2020-03-26 10:06] LABS: BACTERIA,URINE FEW /HPF; RBC,URINE >50 /HPF (0-5)
[2020-03-26 10:07] LABS: EPITHELIAL CELLS,URINE RARE /LPF
--- NOTE | 2020-03-26 10:50 | NUR ---
unable to verify home medications. Patient unable to recall names and dosages.
--- NOTE | 2020-03-26 11:11 | Emergency Department Note ---
History of Present Illnes History of Present Illness Chief Complaint: General Medicine Complaints History of Present Illness This is a 70 year old male arrived to the ED for weakness and generalized malaise for the past several days- pt also complaining of worsening scrotal swelling. Chief Complaint Comment STATES HE "HAD A PROCEDURE" HERE LAST WK AND GOT A BROOKS AND TOMORROW IS TO HAVE HIS PROSTATE REMOVED BY DR SILVA HERE AT [facility], BUT TODAY HIS TESTICLES WERE IN SEVERE PAIN AND HE WAS FEELING DIZZY SITTING UP. PT IS AAOX4. SLIGHTLY BREATHS RAPID, GCS 14, PT ABLE TO SELF STAND FROM W/C TO BED, BUT DIFFICULT. PT ARRIVED TO ER WITH SHIRT ONLY ON AND BROOKS TO GRAVITY, WITH LARGE AMT OF SEDIMENT AND DARK URINE NOTED. PT IMMEDIATELY COVERED WITH GOWN AND TAKEN TO ROOM. MD LEOS DONE ON ARRIVAL. . Historian: Patient, Friend Arrival Mode: Car Onset (how long ago): day(s) Severity: mild Onset quality: gradual Duration (how long): day(s) Timing of current episode: constant Progression: worsening Relieving factors: rest Exacerbating factors: movement Associated symptoms: weakness Past Medical/Family History Physician Review I have reviewed the patient's past medical and family history. Any updates have been documented here. Past Medical History Recent Fever: No Clinical Suspicion of Infectio: No New/Unexplained Change in Ment: No Past Medical History: UTI's Other Medical History: pt denies Other Surgery: pt denies Social History Smoking Cessation: Unknown if ever smoked Counseling Performed: No Alcohol Use: None Any Illegal Drug Use: No TB Exposure/Symptoms: No Physically hurt or threatened: No Family History Family history of heart diseas: Yes Other Last Tetanus: UNK Any Pre-Existing Lines (PICC,: No Is patient up to date on immun: Yes Last Flu: YES Last Pneumovax: YES Review of Systems Review of Systems Constitutional: as per HPI, malaise, weakness EENTM: no symptoms Cardiovascular: no symptoms Respiratory: no symptoms Gastrointestinal: no symptoms Genitourinary: no symptoms, other (scortal swelling ) Musculoskeletal: no symptoms Neurological: no symptoms Psychological: no symptoms Endocrine: no symptoms Hematological/Lymphatic: no symptoms Review of other systems All other systems reviewed and negative. Physical Exam Related Data Allergies: Coded Allergies: No Known Allergies (Unverified , 12/20/19) Triage Vital Signs Vital Signs Date Time Temp Pulse Resp B/P (MAP) Pulse Ox O2 Delivery O2 Flow Rate FiO2 03/26/20 08:27 98.4 96 24 125/66 99 Vital signs reviewed: Yes Physical Exam CONSTITUTIONAL Constitutional: obese HENT HENT: normocephalic, atraumatic, oropharynx clear/moist, nose normal HENT L/R: left ext ear normal, right ext ear normal EYES Eyes: PERRL, conjunctivae normal NECK PULMONARY Pulmonary: effort normal, breath sounds normal CARDIOVASCULAR Cardiovascular: regular rhythm, heart sounds normal, capillary refill normal, normal rate GASTROINTESTINAL Abdominal: soft, nontender, bowel sounds normal GENITOURINARY Genitourinary: other (+brooks cathter, marked scotal swelling) SKIN Skin: dry MUSCULOSKELETAL Musculoskeletal: edema NEUROLOGICAL Neurological: alert, oriented x 3 PSYCHOLOGICAL Psychological: mood/affect normal, behavior normal Results Laboratory Result Diagram: 03/26/20 0845 03/26/20 0845 Laboratory Laboratory Tests Test 03/26/20 08:55 03/26/20 08:45 White Blood Count 10.96 x10e3/uL (4.8-10.8) Red Blood Count 3.60 x10e6/uL (4.3-5.7) Hemoglobin 11.9 g/dL (14.0-18.0) Hematocrit 34.8 % (38.2-49.6) Mean Corpuscular Volume 96.7 fL (81-99) Mean Corpuscular Hemoglobin 33.1 pg (28-32) Mean Corpuscular Hemoglobin Concent 34.2 g/dL (31-35) Red Cell Distribution Width 11.3 % (11.7-14.4) Platelet Count 208 x10e3/uL (140-360) Neutrophils (%) (Auto) 67.6 % (38.7-80.0) Lymphocytes (%) (Auto) 20.6 % (18.0-39.1) Monocytes (%) (Auto) 8.5 % (4.4-11.3) Eosinophils (%) (Auto) 2.6 % (0.0-6.0) Basophils (%) (Auto) 0.3 % (0.0-1.0) Neutrophils # (Auto) 7.4 (2.1-6.9) Lymphocytes # (Auto) 2.3 (1.0-3.2) Monocytes # (Auto) 0.9 (0.2-0.8) Eosinophils # (Auto) 0.3 (0.0-0.4) Basophils # (Auto) 0.0 (0.0-0.1) Absolute Immature Granulocyte (auto 0.04 x10e3/uL (0-0.1) Urine Color Yellow (YELLOW) Urine Clarity Clear (CLEAR) Urine pH 5.5 (5 - 7) Urine Specific [place] >=1.030 (1.010-1.025) Urine Protein >=300 (NEGATIVE) Urine Glucose (UA) Negative (NEGATIVE) Urine Ketones Negative (NEGATIVE) Urine Blood Large (NEGATIVE) Urine Nitrite Negative (NEGATIVE) Urine Bilirubin Negative (NEGATIVE) Urine Urobilinogen 0.2 mg/dL (0.2 - 1) Urine Leukocyte Esterase Small (NEGATIVE) Urine RBC >50 /HPF (0-5) Urine WBC 11-20 /HPF (0-5) Urine Epithelial Cells Rare /LPF (NONE) Urine Bacteria Few /HPF (NONE) Sodium Level 136 mmol/L (136-145) Potassium Level 3.5 mmol/L (3.5-5.1) Chloride Level 100 mmol/L (98-107) Carbon Dioxide Level 25 mmol/L (22-29) Anion Gap 14.5 mmol/L (8-16) Blood Urea Nitrogen 14 mg/dL (7-26) Creatinine 1.20 mg/dL (0.72-1.25) Estimat Glomerular Filtration Rate > 60 ML/MIN (60-) BUN/Creatinine Ratio 12 (6-25) Glucose Level 108 mg/dL (74-118) Calcium Level 9.3 mg/dL (8.4-10.2) Total Bilirubin 0.9 mg/dL (0.2-1.2) Aspartate Amino Transf (AST/SGOT) 23 IU/L (5-34) Alanine Aminotransferase (ALT/SGPT) 22 IU/L (0-55) Alkaline Phosphatase 79 IU/L (40-150) Creatine Kinase 167 IU/L (30-200) Creatine Kinase MB 2.80 ng/mL (0-5.0) Troponin I 0.003 ng/mL (0-0.300) B-Type Natriuretic Peptide 12.6 pg/mL (0-100) Total Protein 7.4 g/dL (6.5-8.1) Albumin 3.5 g/dL (3.5-5.0) Globulin 3.9 g/dL (2.3-3.5) Albumin/Globulin Ratio 0.9 (0.8-2.0) Lab results reviewed: Yes Imaging Imaging results reviewed: Yes Impressions Findings: Central airways are not well visualized. There is apparent cardiomegaly which could be because of the technique. There is no pleural effusion. There is no pneumothorax. There is prominence of the descending thoracic aorta. Lung rojas show no focal significant disease. Visualized skeleton and extrathoracic soft tissue structures are unremarkable for an acute abnormality. Impression: No acute cardiopulmonary disease. US Duplex negative Procedures 12 Lead ECG Interpretation Sports Attorney: Interpreted by ED physician Prior PLAYGROUND MONITOR tracings: reviewed Rhythm: sinus rhythm Ectopy: PJC's Rate: normal QRS axis: normal ST segments normal: Yes T waves normal: Yes Other findings: no other findings Clinical Impression: normal ECG Critical Care Time Subsequent provider I assumed direction of critical care for this patient from another provider of my specialty. Assessment & Plan Assessment & Plan Final Impression: (1) Dizziness (2) CHF (congestive heart failure) (3) Weakness (4) Scrotal swelling (5) UTI (urinary tract infection) Assessment & Plan -cbc, cmp, cardiac makers -EKG, CXR -lower extremity ultrasound -ceftriaxone -urology consult Depart Disposition: ADMITTED Last Vital Signs Date Time Temp Pulse Resp B/P (MAP) Pulse Ox O2 Delivery O2 Flow Rate FiO2 03/26/20 10:55 99 20 127/75 100 03/26/20 08:27 98.4 Home Meds Active Scripts Potassium Chloride (POTASSIUM CHLORIDE) 20 Meq Tab.er.prt, 20 MEQ PO DAILY for 3 Days Prov:ABHINAV CROW CLINICAL ENGINEERING MANAGER 10/29/19 Furosemide (FUROSEMIDE) 40 Mg Tablet, 40 MG PO Daily for 3 Days, TAB Prov:ABHINAV CROW CLINICAL ENGINEERING MANAGER 10/29/19 Aspirin (ASPIRIN CHEW) 81 Mg Chew, 81 MG PO DAILY for 30 Days Prov:TRISTINLOISABHINAV Blessing CLINICAL ENGINEERING MANAGER 10/29/19 Reported Medications Tamsulosin Hcl* (FLOMAX*) 0.4 Mg Cap, 0.4 MG PO DAILY, #30 CAP 03/18/20 ELIZABETH FELIZ DO March 26, 2020 10:55
[2020-03-26] MEDS: ACETAMINOPHEN 325 MG TAB PO PRN ×2 (11:55→23:05)
[2020-03-26] MEDS: CEFTRIAXONE SOD 1 GM/NS 50 ML 50 ML IV SCH (11:57)
--- NOTE | 2020-03-26 14:31 | NUR ---
attempted to call report was told that nurse was unable to receive report at this time.
[2020-03-26 15:30] VITALS: BP 127/68
--- NOTE | 2020-03-26 15:37 | NUR ---
Pt arrived to floor via stretcher resp even and unlabored at this time, pt has Castro to gravity, pt then oriented to room and call light, bed in lowest position, bed rails up x2, pt able to ambulate from stretcher to bed, call light in reach.
[2020-03-26 16:23] VITALS: BP 127/68
--- NOTE | 2020-03-26 19:30 | NUR ---
report given to oncoming nurse. pt stable at shift change.
[2020-03-26 20:01] VITALS: BP 127/68
--- NOTE | 2020-03-26 20:08 | NUR ---
RECEIVED PT IN BED AOX3 ,DENIES PAIN PT HAS F/C STRAINING YELLOW URINE SCROTUM SWOLLEN CALL LIGHT WITH IN REACH .CONTINUE TO MONITOR
--- NOTE | 2020-03-26 20:09 | History and Physical ---
CHIEF COMPLAINT: A 70-year-old gentleman, who came in and was sent to the ER by Dr. Blanc for scrotal pain. HISTORY OF PRESENTING ILLNESS: Mr. Kevin Shaffer, who had a circumcision done and two days ago, the patient continued to have pain in the area and also had scrotal swelling and tenderness and erythema and the patient did call Dr. Blanc, and was sent to the emergency room, and so admitted to the hospital for possible congestive heart failure, also bilateral scrotal swelling and edema, cellulitis, urinary tract infection and possible decompensated congestive heart failure. PAST MEDICAL HISTORY: History of hypertension, history of questionable congestive heart failure, seen by Dr. Allred and also history of morbid obesity. MEDICATIONS: He takes at home, aspirin 81 mg, furosemide 40 mg, potassium chloride 20 mEq, and tamsulosin 0.4 mg. SOCIAL HISTORY: No EtOH, no IV drug abuse, and no history of smoking. ALLERGIES: THE PATIENT HAS NO KNOWN DRUG ALLERGIES. REVIEW OF SYSTEMS: Negative for chest pain. Positive for shortness of breath on exertion. Positive for some orthopnea. No PND. Positive for bilateral lower leg swelling and the patient also has bilateral scrotal swelling after the circumcision. FAMILY HISTORY: Positive for hypertension and diabetes mellitus. PHYSICAL EXAMINATION: VITAL SIGNS: Temperature is 98.4, pulse of 99 to 100s, respirations 20, blood pressure is 127/75, pulse oximetry of 100% on 2 L of oxygen. HEENT: Normocephalic, atraumatic. The patient is morbidly obese. CVS: S1-S2 distant. Tachycardic. ABDOMEN: Tender in the epigastrium, right lower and suprapubic tenderness present. EXTREMITIES: 3+ edema. Especially present to the thighs. The patient also has scrotal swelling and Castro catheter gravity present. LABORATORY VALUES: White count is 10.96, hemoglobin 11.9, hematocrit of 34.8. Chemistry shows sodium 136, potassium 3.5, BUN of 1.20 and GFR about 60. Lactic acid was canceled. ALT and AST within normal limits. Troponin negative fine. BNP was 12.6. IMAGING STUDIES: Chest x-ray shows questionable cardiomegaly, otherwise within normal limits. ASSESSMENT: Mr. Kevin Shaffer is a 70-year-old with: Scrotal cellulitis, scrotal swelling, abdominal pain, questionable congestive heart failure, possible sleep apnea, obesity hypoventilation syndrome, and urinary tract infection. The patient also has leukocytosis and chronic kidney disease stage 3. PLAN: To admit the patient. The patient has been given furosemide 40 mg a dose. Consult with Dr. Blanc has already been done. Rocephin 1 g been given. We will go ahead and do echocardiogram and also continue monitoring the cardiac enzymes. The patient's BNP, however, is normal. Further recommendation per clinical course. We will continue to monitor the patient and also depending on the echocardiogram, aspirin will be stopped in lieu of surgery and diuresis will be ongoing. MD MILAGROS Hubbard/MODL /[id number]
[2020-03-26 21:06] VITALS: BP 132/67
[2020-03-27] VITALS (8 sets, daily range): BP systolic 119–152; BP diastolic 70–86
[2020-03-27] MEDS ORDERED: INFLUENZA VIRUS VAC SPLIT INJ 0.5 ML SYR IM SCH (00:01)
--- NOTE | 2020-03-27 05:26 | NUR ---
PT RESTED DURING THE NIGHT ,C/O PAIN AND GIVEN ORDERED PAIN MEDICATION.PT HAD SHOWER .CONTINUE TO MONITOR
[2020-03-27 06:11] LABS: BASOPHILS % 0.2 % (0.0-1.0); EOSINOPHILS # (AUTO) 0.2 (0.0-0.4); EOSINOPHILS % 2.8 % (0.0-6.0); HEMATOCRIT 35.4 % (38.2-49.6); LYMPHOCYTES # (AUTO) 1.6 (1.0-3.2); LYMPHOCYTES % 18.3 % (18.0-39.1); MEAN CORPUSCULAR HEMOGLOBIN 32.8 pg (28-32); MEAN CORPUSCULAR HGB CONC 33.9 g/dL (31-35); MEAN CORPUSCULAR VOLUME 96.7 fL (81-99); MONOCYTES # (AUTO) 0.8 (0.2-0.8); MONOCYTES % 8.8 % (4.4-11.3); NEUTROPHILS # (AUTO) 5.9 (2.1-6.9); NEUTROPHILS % 69.5 % (38.7-80.0); PLATELET COUNT 238 x10e3/uL (140-360); RED BLOOD COUNT 3.66 x10e6/uL (4.3-5.7); RED CELL DISTRIBUTION WIDTH 11.2 % (11.7-14.4)
[2020-03-27 06:40] LABS: ANION GAP 12.7 mmol/L (8-16); BLOOD UREA NITROGEN 14 mg/dL (7-26); BUN/CREATININE RATIO 14 (6-25); CALCIUM 8.9 mg/dL (8.4-10.2); CARBON DIOXIDE 24 mmol/L (22-29); CHLORIDE 105 mmol/L (98-107); CREATININE, SERUM 1.02 mg/dL (0.72-1.25); EST GLOMERULAR FILTRATION RATE > 60 ML/MIN (60-); GLUCOSE 101 mg/dL (74-118); POTASSIUM 3.7 mmol/L (3.5-5.1); SODIUM 138 mmol/L (136-145)
--- NOTE | 2020-03-27 06:48 | NUR ---
BEDSIDE REPORT GIVEN TO THE ONCOMING NURSE
[2020-03-27] MEDS: TAMSULOSIN HCL 0.4 MG CAP PO SCH (08:12)
[2020-03-27] MEDS: POTASSIUM CHLORIDE 20 MEQ TAB CR PO SCH (08:12)
[2020-03-27] MEDS: FUROSEMIDE INJ 10 MG/ML 4 ML VIAL IV SCH (08:12)
--- NOTE | 2020-03-27 09:17 | Progress Note ---
DATE: SUBJECTIVE: The patient is a 70-year-old who came in with hydrocele, cellulitis of the prepuce, status post circumcision. The patient also has bilateral lower extremity edema. Signs, symptoms of heart failure and also patient comes in with urinary tract infection. Currently, the patient is feeling better. However, scrotal swelling and pain has been about the same. No exacerbation though. OBJECTIVE: VITAL SIGNS: Temperature is 99.0, pulse of 101, respirations of 20, blood pressure is 119/78, pulse oximetry of 95%. HEENT: Normocephalic, atraumatic. Pupils are reactive. The patient is morbidly obese. CVS: S1 and S2 distant. Regular rate and rhythm. ABDOMEN: Soft, nontender. Bilateral scrotum with hydrocele, tender and edematous thigh, and also the prepuce. Castro catheter to gravity. EXTREMITIES: Positive for edema. MICROBIOLOGY: Blood cultures and urine cultures are pending. IMAGING STUDIES: Preliminary studies of the lower venous studies have been negative. ASSESSMENT: Mr. Kevin Shaffer: 1. Scrotal swelling, hydrocele. 2. Leukocytosis. 3. Possible infection of the prepuce. 4. Urinary tract infection. 5. Leukocytosis. 6. Chronic kidney disease. 7. Hypertension and possible fluid overload. PLAN: 1. Echocardiogram is pending. 2. Leukocytosis has trended down. 3. The patient is scheduled to see Dr. Blanc for probable hydrocele repair. Continue antibiotic at this time. The patient is on Rocephin q.24 hours and the patient is also on Lasix 40 mg IV daily. 4. Further recommendation per clinical course. We will continue to monitor the patient along with Dr. Blanc. MD FAITH HubbardJ/MODL /[id number]
[2020-03-27] MEDS: ACETAMINOPHEN 325 MG TAB PO PRN (09:39)
[2020-03-27] MEDS: CEFTRIAXONE SOD 1 GM/NS 50 ML 50 ML IV SCH (12:25)
--- NOTE | 2020-03-27 16:14 | NUR ---
incision around penis cleansed with soap and water. scrotum elevated with towel.
--- NOTE | 2020-03-27 19:00 | NUR ---
Received bedside report from day nurse. Patient awake and resting in bed, no s/s of distress at this time. Bed locked and in low position, alarm on, side rails up x3, call light placed within reach. Patient instructed to call for assistance if needed, verbalized understanding. All safety measures in place. Will continue to monitor.
[2020-03-27] MEDS: ACETAMINOPHEN/CODEINE 300MG - 30MG TAB PO PRN (20:22)
[2020-03-28] VITALS (7 sets, daily range): BP systolic 108–138; BP diastolic 65–78
[2020-03-28] MEDS: ACETAMINOPHEN/CODEINE 300MG - 30MG TAB PO PRN ×2 (02:24→06:13)
[2020-03-28 06:22] LABS: BASOPHILS % 0.3 % (0.0-1.0); EOSINOPHILS # (AUTO) 0.3 (0.0-0.4); EOSINOPHILS % 3.9 % (0.0-6.0); HEMATOCRIT 35.3 % (38.2-49.6); HEMOGLOBIN 11.9 g/dL (14.0-18.0); LYMPHOCYTES # (AUTO) 1.9 (1.0-3.2); LYMPHOCYTES % 24.2 % (18.0-39.1); MEAN CORPUSCULAR HEMOGLOBIN 33.3 pg (28-32); MEAN CORPUSCULAR HGB CONC 33.7 g/dL (31-35); MEAN CORPUSCULAR VOLUME 98.9 fL (81-99); MONOCYTES # (AUTO) 0.8 (0.2-0.8); MONOCYTES % 9.5 % (4.4-11.3); NEUTROPHILS # (AUTO) 4.9 (2.1-6.9); NEUTROPHILS % 61.7 % (38.7-80.0); PLATELET COUNT 243 x10e3/uL (140-360); RED BLOOD COUNT 3.57 x10e6/uL (4.3-5.7); RED CELL DISTRIBUTION WIDTH 11.2 % (11.7-14.4)
[2020-03-28 07:10] LABS: ANION GAP 15.1 mmol/L (8-16); BLOOD UREA NITROGEN 11 mg/dL (7-26); BUN/CREATININE RATIO 12 (6-25); CALCIUM 9.3 mg/dL (8.4-10.2); CARBON DIOXIDE 23 mmol/L (22-29); CHLORIDE 104 mmol/L (98-107); CREATININE, SERUM 0.95 mg/dL (0.72-1.25); EST GLOMERULAR FILTRATION RATE > 60 ML/MIN (60-); GLUCOSE 91 mg/dL (74-118); POTASSIUM 4.1 mmol/L (3.5-5.1); SODIUM 138 mmol/L (136-145)
--- NOTE | 2020-03-28 07:11 | NUR ---
Bedside report given to oncoming nurse. Patient awake and resting in bed, no s/s of distress at this time. All safety measures in place.
[2020-03-28] MEDS: FUROSEMIDE INJ 10 MG/ML 4 ML VIAL IV SCH (08:02)
[2020-03-28] MEDS: POTASSIUM CHLORIDE 20 MEQ TAB CR PO SCH (08:02)
[2020-03-28] MEDS: TAMSULOSIN HCL 0.4 MG CAP PO SCH (08:02)
--- NOTE | 2020-03-28 08:57 | Progress Note ---
DATE: SUBJECTIVE: A 70-year-old gentleman with a history of scrotal swelling, hydrocele status post circumcision. The patient with increased tenderness and erythema of the scrotum. The patient has a Castro catheter. Urology consult seen and the patient can be discharged as per Urology with a leg bag. Currently, no chest pains. No shortness of breath. No nausea, vomiting, or diarrhea. Echocardiogram shows EF of 50% to 55%. MEDICATIONS: Rocephin, Lasix, potassium chloride, and tamsulosin. OBJECTIVE: VITAL SIGNS: Temperature is 98.6, pulse of 87, respiration of 20, blood pressure is 108/67. Pulse oximetry is 97% on room air. HEENT: Normocephalic and atraumatic. Morbidly obese. CVS: S1 and S2 distant. LUNGS: Clear. ABDOMEN: Soft, nontender, and nondistended. EXTREMITIES: Positive for edema. Scrotal swelling, post scrotal edema and edema of the prepuce and also Castro catheter to gravity. LABORATORY VALUES: Here white count is 7.99, hemoglobin of 11.9, hematocrit 35.3. Chemistry pending, but sodium is 138, 3.7 potassium yesterday. Serology; coronavirus not detected. Microbiology; no growth in urine culture or blood culture. ASSESSMENT: Mr. Kevin Shaffer 70-year-old gentleman with: 1. Scrotal swelling, hydrocele. 2. Leukocytosis, better. 3. Infection of the prepuce on Rocephin. 4. Urinary tract infection, on Rocephin. 5. Chronic kidney disease, better. 6. Hypertension and fluid overload on Lasix. PLAN: Okay to discharge home from [facility], can go home on Augmentin 875 mg twice a day. The patient can be seen as an outpatient with Dr. Blanc. Discharge the patient on Castro catheter with a leg bag if okay with Urology. Further recommendation per clinical course. The patient can be discharged and follow up with Urology as needed. MD FAITH HubbardJ/MODL /[id number]
[2020-03-28] MEDS: ACETAMINOPHEN 325 MG TAB PO PRN (12:00)
[2020-03-28] MEDS: CEFTRIAXONE SOD 1 GM/NS 50 ML 50 ML IV SCH (12:05)
--- NOTE | 2020-03-28 17:06 | NUR ---
Nutrition Screen Note RD Recommendation for Physician: -Recommend to continue cardiac diet Plan of Care: RD following, monitoring for tolerance and adequacy Nutrition reason for involvement: Diagnosis - CHF Primary Diagnose(s): CHF, dizziness, scrotal swelling, weakness PMH: HTN, questionable CHF Ht:70 in Wt: 215 lb BMI: 30.8 kg/m2 IBW:[address] Assessment: (03/28) Chart reviewed. Labs and meds reviewed. Pt is a 70 year old male admitted with CHF, dizziness, scrotal swelling, and weakness. Pt reports eating all of his meals. Pt was unsure of any recent weight changes and things he weighed 240-245 lbs 3 months ago. Pt currently has a weight of 215 lbs in chart. Will continue to monitor. Current Diet: cardiac Malnutrition Evaluation (03/28) The patient does not meet criteria for a specified degree of malnutrition at this time. Will re-evaluate at follow-up as appropriate. Diet Education Needs Assessment: pt declined diet education materials Nutrition Care Level: low Signed: Yareli Chaudhary, RD, LD
--- NOTE | 2020-03-28 19:00 | NUR ---
Bedside report completed with morning nurse. Pt alert and oriented to name, sitting in recliner. Castro flowing dark darren urine. Denies pain at this time. Call light within reach.
[2020-03-29] VITALS (8 sets, daily range): BP systolic 113–139; BP diastolic 65–95
[2020-03-29] MEDS: ACETAMINOPHEN/CODEINE 300MG - 30MG TAB PO PRN ×6 (00:15→22:30)
[2020-03-29] MEDS: ACETAMINOPHEN 325 MG TAB PO PRN (00:15)
--- NOTE | 2020-03-29 06:51 | NUR ---
left foot pain 8/10, admin prn Tylenol. No other complaints. call light within reach.
[2020-03-29 06:58] LABS: ANION GAP 14.1 mmol/L (8-16); BLOOD UREA NITROGEN 11 mg/dL (7-26); BUN/CREATININE RATIO 12 (6-25); CALCIUM 9.4 mg/dL (8.4-10.2); CARBON DIOXIDE 25 mmol/L (22-29); CHLORIDE 102 mmol/L (98-107); CREATININE, SERUM 0.94 mg/dL (0.72-1.25); EST GLOMERULAR FILTRATION RATE > 60 ML/MIN (60-); GLUCOSE 84 mg/dL (74-118); POTASSIUM 4.1 mmol/L (3.5-5.1); SODIUM 137 mmol/L (136-145)
--- NOTE | 2020-03-29 08:16 | NUR ---
Received bedside shift report from off going nurse. Patient in stable condition, no s/s of distress noted. no pain voiced. Telemetry applied and working. Bed in lowest position and working. Call light within reach.
--- NOTE | 2020-03-29 08:31 | Progress Note ---
DATE: SUBJECTIVE: This is a 70-year-old male, who came in with scrotal swelling, prepuce swelling, and bilateral lower extremity edema. The patient had an echocardiogram with preserved EF. Currently complains of increased bilateral lower extremity edema and he is having an indwelling urinary catheter as per Dr. Blanc. OBJECTIVE: VITAL SIGNS: Temperature is 98.4, pulse of 85, respirations of 18, blood pressure is 139/86, and pulse oximetry of 97%. HEENT: Normocephalic and atraumatic. Pupils are equal and react to light and accommodation. CVS: S1 and S2 normal. Regular rate and rhythm. ABDOMEN: Soft, nontender, and nondistended. EXTREMITIES: Positive for bilateral leg edema, scrotal edema and also prepuce edema. LABORATORY VALUES: BUN and creatinine are normal 11 and 0.95 yesterday and pending today. Hematology headley, a hemoglobin is 11.9 and 35.3. ASSESSMENT: Mr. Kevin Shaffer with; 1. Scrotal edema. 2. Bilateral lower extremity edema. 3. Deconditioning. 4. Scrotal cellulitis. 5. Morbid obesity. Microbiology headley, no growth in the urine culture or blood culture. PLAN: Continue with IV hydration, chronic kidney disease is much better. Acute kidney injury has resolved. Continue with Lasix. The patient can go home on Augmentin. We will go and re-consult Urology. Further recommendation per clinical course. MD MILAGROS Hubbard/KASIL /[id number]
[2020-03-29] MEDS: FUROSEMIDE INJ 10 MG/ML 4 ML VIAL IV SCH (09:07)
[2020-03-29] MEDS: POTASSIUM CHLORIDE 20 MEQ TAB CR PO SCH (09:07)
[2020-03-29] MEDS: TAMSULOSIN HCL 0.4 MG CAP PO SCH (09:07)
[2020-03-29] MEDS: CEFTRIAXONE SOD 1 GM/NS 50 ML 50 ML IV SCH (11:00)
--- NOTE | 2020-03-29 18:59 | NUR ---
Completed bedside shift report and rounding with on coming night nurse. Patient in stable condition, no s/s of distress noted. No pain voiced. Telemetry applied. Castro applied and draining into the drainage bag. Bed in lowest position and locked. Call light within reach.
--- NOTE | 2020-03-29 19:00 | NUR ---
Bedside nursing report completed with morning nurse. Pt alert and oriented to name, lying in bed HOB 60 degrees. Castro flowing yellow urine. Call light within reach. Bed low and locked.
[2020-03-30 00:10] VITALS: BP 122/76
[2020-03-30] MEDS: ACETAMINOPHEN/CODEINE 300MG - 30MG TAB PO PRN ×2 (03:20→11:26)
[2020-03-30 05:14] VITALS: BP 138/82
[2020-03-30 07:34] VITALS: BP 121/71
[2020-03-30 08:00] VITALS: BP 121/71
[2020-03-30] MEDS: FUROSEMIDE INJ 10 MG/ML 4 ML VIAL IV SCH (08:23)
[2020-03-30] MEDS: POTASSIUM CHLORIDE 20 MEQ TAB CR PO SCH (08:23)
[2020-03-30] MEDS: TAMSULOSIN HCL 0.4 MG CAP PO SCH (08:23)
--- NOTE | 2020-03-30 08:40 | Progress Note ---
DATE: SUBJECTIVE: A 70-year-old gentleman who came in with scrotal hydrocele, cellulitis of the prepuce and scrotum. No complaints except for pain and traction forces on the pubis bone. The patient complains of pain secondary to the traction and also because of the Castro catheter. Indwelling catheter is supposed to be in there for 2 weeks and the patient follows up with Dr. Blanc. Currently on Lasix and potassium replacement, also on Rocephin. The patient has also potassium chloride and tamsulosin. OBJECTIVE: HEENT: Normocephalic and atraumatic. Pupils are reactive. CVS: S1 and S2 normal. Regular rate and rhythm. ABDOMEN: Nontender, nondistended. EXTREMITIES: No clubbing. No cyanosis. Positive for edema. Scrotal edema, which has come down drastically and also profuse edema, which has come down drastically. Castro catheter to gravity. LABORATORY VALUES: None done since . Patient's BUN and creatinine are stable, was done yesterday. BUN was 11, creatinine 0.94. ASSESSMENT: Mr. Kevin Shaffer with: 1. Scrotal edema. 2. Bilateral lower extremity edema. 3. Deconditioning. 4. Scrotal cellulitis. 5. Morbid obesity. 6. Benign prostatic hypertrophy. PLAN: Continue with Lasix at this time. The patient can be discharged with Lasix and potassium. The patient also should be taking Flomax, which he has at home to be followed up with Dr. Blanc not to take Castro catheter out. The patient has a leg bag and teaching was given to the patient. The patient will follow up with Dr. Blanc for further urodynamic studies and possible prostatectomy and revision of the hydrocele. Further recommendation per clinical course. The patient will be discharged on Lasix and potassium for medicines also will be put on Augmentin 875 mg twice a day for 10 days and strict ER warnings have been given to the patient. MD MILAGROS Hubbard/MODL /[id number]
[2020-03-30] MEDS ORDERED: AUGMENTIN 875-1 EACH PO (10:54)
[2020-03-30 11:14] VITALS: BP 102/63
--- NOTE | 2020-03-30 14:25 | NUR ---
Pt discharged home at this time. Pt is being discharge home with indwelling urinary catheter. Pt education was done related to diamond catheter and pt verbalized understanding. Pt verbalized understanding of all discharge instructions and follow up appointments. Pt was sent home with 3 prescriptions.
== END 2020-03-30 14:25 | disposition home or self-care (01) | DRG 698 ==
LOC: ER 08:27 → ERHOLD 10:14 → MED/SURG3 15:25
PROVIDERS: ADMIT Family Medicine; ATTEND Family Medicine
DX: T83.511A Infection and inflammatory reaction due to indwelling urethral catheter, initial encounter (principal); I50.33 Acute on chronic diastolic (congestive) heart failure; I13.0 Hypertensive heart and chronic kidney disease with heart failure and stage 1 through stage 4 chronic kidney disease, or unspecified chronic kidney disease; E66.2 Morbid (severe) obesity with alveolar hypoventilation; N17.9 Acute kidney failure, unspecified; N49.2 Inflammatory disorders of scrotum; N39.0 Urinary tract infection, site not specified; N18.3 Chronic kidney disease, stage 3 (moderate); E87.70 Fluid overload, unspecified; R42 Dizziness and giddiness; Z82.49 Family history of ischemic heart disease and other diseases of the circulatory system; Z83.3 Family history of diabetes mellitus; G47.30 Sleep apnea, unspecified; N43.3 Hydrocele, unspecified; E66.01 Morbid (severe) obesity due to excess calories; Z68.30 Body mass index [BMI] 30.0-30.9, adult; N18.9 Chronic kidney disease, unspecified
CPT/HCPCS: 36415; 71045; 80048; 80053; 81001; 82550; 82553; 83880; 84443; 84484; 85025; 87040; 87086; 87635; 93005; 93306; 93970; 99284; J0696; J1940

== ENCOUNTER 2024-10-21 19:21 | Emergency (ER) | payer MEDICARE ==
[~2024-10-21] VITALS: Ht 172.7 cm; Wt 97.5 kg
[~2024-10-21 19:21] MED LIST changes: +AUGMENTIN 875-1 EACH PO
[2024-10-21 19:55] VITALS: PULSE 98; RESP 20; TEMP 99.6
[2024-10-21 20:48] LABS: BASOPHILS % 0.2 % (0.0-1.0); EOSINOPHILS # (AUTO) 0.9 (0.0-0.4); EOSINOPHILS % 7.2 % (0.0-6.0); HEMATOCRIT 40.1 % (38.2-49.6); HEMOGLOBIN 12.9 g/dL (14.0-18.0); LYMPHOCYTES # (AUTO) 1.6 (1.0-3.2); LYMPHOCYTES % 12.9 % (18.0-39.1); MEAN CORPUSCULAR HEMOGLOBIN 33.4 pg (28-32); MEAN CORPUSCULAR HGB CONC 32.2 g/dL (31-35); MEAN CORPUSCULAR VOLUME 103.9 fL (81-99); MONOCYTES # (AUTO) 0.8 (0.2-0.8); MONOCYTES % 6.3 % (4.4-11.3); NEUTROPHILS # (AUTO) 9.1 (2.1-6.9); NEUTROPHILS % 72.9 % (38.7-80.0); PLATELET COUNT 230 x10e3/uL (140-360); RED BLOOD COUNT 3.86 x10e6/uL (4.3-5.7); RED CELL DISTRIBUTION WIDTH 11.5 % (11.7-14.4); WHITE BLOOD COUNT 12.44 x10e3/uL (4.8-10.8)
[2024-10-21 21:10] LABS: ALBUMIN 3.3 g/dL (3.5-5.0); ALBUMIN/GLOBULIN RATIO 0.8 (0.8-2.0); BILIRUBIN,TOTAL 0.6 mg/dL (0.2-1.2); CALCIUM 9.1 mg/dL (8.4-10.2); CREATININE, SERUM 1.36 mg/dL (0.72-1.25); TOTAL PROTEIN 7.2 g/dL (6.5-8.1)
[2024-10-21] MEDS ORDERED: DOXYCYCLINE HY100 MG PO (22:23)
[2024-10-21 23:49] VITALS: BP 130/87; O2SAT 100
== END 2024-10-21 23:45 | disposition home or self-care (01) ==
LOC: ER 20:43
DX: R50.9 Fever, unspecified (principal); L03.113 Cellulitis of right upper limb; R21 Rash and other nonspecific skin eruption; M25.421 Effusion, right elbow; I10 Essential (primary) hypertension; E11.9 Type 2 diabetes mellitus without complications; I50.9 Heart failure, unspecified; E78.5 Hyperlipidemia, unspecified; F32.A Depression, unspecified
CPT/HCPCS: 36415; 80053; 85025; 93971; 99284